=== PATIENT | male | born 1955 | race Caucasian/White ===

== ENCOUNTER 2016-04-15 23:10 | Inpatient (IN) | payer BC ==
[~2016-04-15] VITALS: Ht 170.2 cm; Wt 66.9 kg
[2016-04-16] MEDS ORDERED: ONDANSETRON HCL 4 MG/2 ML VIAL IV ONE (00:15)
[2016-04-16] MEDS ORDERED: HYDROmorphone HCL 2 MG/ML VL IV ONE (00:15)
[2016-04-16 01:16] LABS: Basophils # (auto) 0 uL; Basophils % (auto) 0.1 % (0.0-2.0); Eosinophils # (auto) 0 uL; Eosinophils % (auto) 0.2 % (0.0-7.0); Hematocrit 42.2 % (41.0-53.0); Hemoglobin 13.9 g/dL (13.5-17.5); Lymphocytes # (auto) 1.3 uL; Lymphocytes % (auto) 10.3 % (10.0-50.0); Mean Corpuscular Hemoglobin 33.3 pg (28.0-32.0); Mean Corpuscular Hgb Conc. 32.9 g/dL (32.0-36.0); Mean Corpuscular Volume 101.2 fL (80.0-100.0); Mean Platelet Volume 8.4 fL (7.4-10.4); Monocytes # (auto) 1.2 uL; Monocytes % (auto) 8.8 % (0.0-12.0); Neutrophils # (auto) 10.5 uL; Neutrophils % (auto) 80.6 % (37.0-80.0); Platelet Count (auto) 274 10^3/uL (140-450); White Blood Cell 13.1 10^3/uL (4.4-10.8)
[2016-04-16 01:29] LABS: INR 1.05 (0.9-1.15); Prothrombin Time 10.8 sec (9.37-12.3)
[2016-04-16 01:49] LABS: Albumin 3.9 g/dL (3.4-5.0); BUN/Creatinine Ratio 18.1
[2016-04-16 01:51] LABS: Bilirubin, Total 0.9 mg/dL (0.2-1.0)
[2016-04-16] MEDS ORDERED: ONDANSETRON HCL 4 MG/2 ML VIAL IV PRN (02:30)
[2016-04-16] MEDS: SODIUM CHLORIDE 0.9% 1,000 ML IV SCH ×2 (02:46→03:30)
[2016-04-16] MEDS ORDERED: FAM20T PO (04:23)
[2016-04-16] MEDS ORDERED: DIPH25CA66 PO (04:23)
[2016-04-16] MEDS: HYDROmorphone HCL 2 MG/ML VL IV PRN ×3 (04:52→14:11)
[2016-04-16 05:04] VITALS: BP 153/86
[2016-04-16 08:13] VITALS: BP 142/86
[2016-04-16] MEDS ORDERED: PANTOPRAZOLE SODIUM 40 MG/10 ML VIAL IV SCH (10:00)
[2016-04-16 11:39] VITALS: BP 142/80
[2016-04-16 16:40] VITALS: BP 144/88
== END 2016-04-16 17:25 | disposition home or self-care (01) | DRG 563 ==
LOC: ER 23:12 → EAST 23:13
PROVIDERS: ADMIT Family Medicine; ATTEND Family Medicine
DX: S82.044A Nondisplaced comminuted fracture of right patella, initial encounter for closed fracture (principal); Y93.01 Activity, walking, marching and hiking; W01.0XXA Fall on same level from slipping, tripping and stumbling without subsequent striking against object, initial encounter; F12.90 Cannabis use, unspecified, uncomplicated; F17.210 Nicotine dependence, cigarettes, uncomplicated; Y92.89 Other specified places as the place of occurrence of the external cause; Y99.8 Other external cause status; Z88.0 Allergy status to penicillin
CPT/HCPCS: 29505; 36415; 71010; 73562; 73700; 80053; 85025; 85049; 85610; 85730; 86850; 86900; 86901; 93005; 96374; 96375; C9113; J2405

== ENCOUNTER 2018-11-16 15:27 | Emergency (ER) | payer BC ==
[~2018-11-16] VITALS: Ht 170.2 cm; Wt 63.5 kg
[~2018-11-16 15:27] MED LIST: DIPH25CA66 PO; FAM20T PO
[2018-11-16] MEDS ORDERED: SODIUM CHLORIDE 0.9% 1,000 ML IV ONE (15:35)
[2018-11-16 16:54] LABS: Basophils # (auto) 0.1 uL; Lymphocytes # (auto) 1.8 uL; Monocytes # (auto) 0.6 uL; Platelet Count (auto) 237 10^3/uL (140-450)
[2018-11-16 16:55] LABS: Basophils % (auto) 1.1 % (0.0-2.0); Eosinophils # (auto) 0.1 uL; Eosinophils % (auto) 2.6 % (0.0-7.0); Hematocrit 44.7 % (41.0-53.0); Lymphocytes % (auto) 31.5 % (10.0-50.0); Mean Corpuscular Hemoglobin 34.4 pg (28.0-32.0); Mean Corpuscular Hgb Conc. 33.5 g/dL (32.0-36.0); Monocytes % (auto) 11.2 % (0.0-12.0); Neutrophils % (auto) 53.6 % (37.0-80.0); Red Blood Cells 4.34 10^6/uL (4.5-5.90); Red Cell Distribution Width 13.4 % (11.8-14.3); White Blood Cell 5.6 10^3/uL (4.4-10.8)
[2018-11-16 17:10] LABS: Alanine Aminotransferase 13 U/L (16-61); Albumin 3.8 g/dL (3.4-5.0); Anion Gap 7 (5-15); Aspartate Aminotransferase 16 U/L (15-37); Blood Urea Nitrogen 9 mg/dL (7-18); Calcium 9.3 mg/dL (8.5-10.1); Carbon Dioxide 25 mmol/L (21-32); Chloride 103 mmol/L (98-107); GFR African American 109 mL/min; GFR Non-African American 90 mL/min; Glucose 81 mg/dL (74-106); Potassium 3.9 mmol/L (3.5-5.1); Sodium 135 mmol/L (136-145)
[2018-11-16 17:15] LABS: Alkaline Phosphatase 65 U/L (45-117); Bilirubin, Total 0.7 mg/dL (0.2-1.0); Total Protein 7.8 g/dL (6.4-8.2)
[2018-11-16 17:30] VITALS: BP 108/64
== END 2018-11-16 18:31 | disposition home or self-care (01) ==
LOC: ER 15:29
DX: I63.81 Other cerebral infarction due to occlusion or stenosis of small artery (principal); H53.2 Diplopia; G31.9 Degenerative disease of nervous system, unspecified; I67.82 Cerebral ischemia; G45.9 Transient cerebral ischemic attack, unspecified; I10 Essential (primary) hypertension; F17.210 Nicotine dependence, cigarettes, uncomplicated
CPT/HCPCS: 36415; 70450; 71045; 76705; 80053; 84484; 85025